=== PATIENT | female | born 1965 | race Two or more races ===

== ENCOUNTER 2024-12-23 09:48 | Inpatient (IN) | payer MEDICAID, OTHER ==
[~2024-12-23] VITALS: Ht 152.4 cm; Wt 72.6 kg
[2024-12-23 10:40] VITALS: PULSE 73; RESP 18; O2SAT 96
[2024-12-23] MEDS: PANTOPRAZOLE 40 MG/10 ML VIAL INJ IV ONE (10:58)
[2024-12-23] MEDS: ONDANSETRON HCL 4 MG/2 ML VIAL IV ONE (10:58)
--- NOTE | 2024-12-23 10:58 | ED.PDOC ---
GI ASSESSMENT HPI Comments 59-year-old female with a history of liver cirrhosis status post TIPS and ventral hernia brought in by private car complaining of left-sided abdominal pain radiating diffusely to the abdomen and to the left side of her back for more than a week, associated with nausea, dizziness, hemoptysis, malodorous urine and urinary frequency. She denies fever, pain, shortness of breath, diarrhea, constipation or dysuria. Patient also notes worsening lower extremity edema over the past several months. Chief Complaint: Abdominal Pain Time Seen by MD: 10:13 Reviewed Notes: Medications, Allergies Allergies: Coded Allergies: NO KNOWN ALLERGIES (Unverified , 12/23/24) Information Source: Patient Mode of Arrival: Ambulatory Timing: Days Duration: Since onset Prehospital treatment: None Quality: Sharp Vomitus: None Stool: Normal Severity: Moderate Recent: None Recent Hx of: None Pain Location: LUQ Associated sign and symptoms: Abdominal Pain Past Medical History PAST MEDICAL HISTORY: Liver Past Medical History (Other): For cirrhosis Surgical History (Other): Knee surgery, TIPS procedure [employer]IST History: Denies all [employer]GAL [employer]IST Hx Family History Family History: Reviewed,noncontributory to illness Social History Smoker: Non-Smoker Alcohol: Denies ETOH Use Drugs: Denies Drug Use Lives In: Home Constitutional: denies: chills, diaphoresis, fatigue, fever, malaise, sweats, weakness, others EENTM: denies: blurred vision, double vision, ear bleeding, ear discharge, ear drainage, ear pain, ear ringing, eye pain, eye redness, hearing loss, mouth pain, mouth swelling, nasal discharge, nose bleeding, nose congestion, nose pain, photophobia, tearing, throat pain, throat swelling, voice changes, others Respiratory: denies: cough, hemoptysis, orthopnea, SOB at rest, shortness of breath, SOB with excertion, stridor, wheezing, others Cardiovascular: denies: chest pain, dizzy spells, diaphoresis, Dyspnea on exertion, edema, irregular heart beat, left arm pain, lightheadedness, palpitations, PND, syncope, others Gastrointestinal: reports: abdominal pain; denies: abdomen distended, blood streaked bowels, constipated, diarrhea, dysphagia, difficulty swallowing, hematemesis, melena, nausea, poor appetite, poor fluid intake, rectal bleeding, rectal pain, vomiting, others Genitourinary: denies: abnormal vagina bleeding, burning, dyspareunia, dysuria, flank pain, frequency, hematuria, incontinence, pain, , vagina discharge, urgency, others Neurological: denies: dizziness, fainting, headache, left sided numbness, left sided weakness, numbness, paresthesia, pre-existing deficit, right sided numbness, right sided weakness, seizure, speech problems, tingling, tremors, weakness, others Musculoskeletal: denies: back pain, gout, joint pain, joint swelling, muscle pain, muscle stiffness, neck pain, others Integumetry: denies: bruises, change in color, change in hair/nails, dryness, laceration, lesions, lumps, rash, wounds, others Allergic/Immunocompromised: denies: Difficulty Healing, Frequent Infections, Hives, Itching, others Hematologic/Lymphatic: denies: anemia, blood clots, easy bleeding, easy bruising, swollen glands, others Endocrine: denies: excessive hunger, excessive sweating, excessive thirst, excessive urination, flushing, intolerance to cold, intolerance to heat, unexplained weight gain, unexplained weight loss, others Psychiatric: denies: anxiety, bipolar disorder, depression, hopeless, panic disorder, schizophrenia, sleepless, suicidal, others All Other Systems: Reviewed and Negative Physical Exam General Appearance: No Apparent Distress HEENT: Other (Pupils and face symmetric. Moist mucous membranes.) Neck: Full Range of Motion, Normal Inspection Respiratory: Lungs Clear, No Accessory Muscle Use, No Respiratory Distress, Normal Breath Sounds Cardiovascular: No Edema, No JVD, Regular Rate/Rhythm Breast Exam: Deferred Gastrointestinal: LLQ, LUQ, RUQ, Soft, Tenderness, Other (Left flank) Genitalia: Deferred Pelvic: Deferred Rectal: Deferred Extremities: Leg edema, Normal inspection, Normal range of motion, Non-tender, Pedal edema Neurologic: Alert (Oriented x4), Normal Affect, Normal Mood, Other (Ambulatory) Cerebellar Function: NOT DONE Reflexes: NOT DONE Skin: Dry, Jaundice, Warm Lymphatic: NOT DONE Was a procedure done? Was a procedure done?: No GI differential Dx Differential Diagnosis: Cholangitis, Diverticular disease, Gastritis/PUD, Gastroenteritis, Inflammatory BD, Ischemic Bowel, Pancreatitis, UTI, Urolithiasis, Dehydration, Electrolyte Imbalance, Food Poisoning, Bacterial, Viral, Hypovolemia, Renal Failure, Stress Ulcer, Kidney Stone X-Ray, Labs, Meds, VS Vital Signs Date Time Temp Pulse Resp B/P (MAP) Pulse Ox O2 Delivery O2 Flow Rate FiO2 12/23/24 11:00 62 18 141/70 12/23/24 10:40 97.8 73 18 141/70 (93) 96 97.8 12/23/24 10:40 73 18 96 Room Air* 0 21 12/23/24 09:49 97.9 81 18 138/63 95 97.9 Lab Test 12/23/24 13:11 12/23/24 11:13 Range/Units Troponin I High Sensitivity 6 13 </=34 ng/L White Blood Count 4.2 L 4.4-10.8 10^3/uL Red Blood Count 4.16 4.0-5.20 10^6/uL Hemoglobin 14.3 12.2-16.2 g/dL Hematocrit 40.9 36.0-46.0 % Mean Corpuscular Volume 98.4 80.0-100.0 fL Mean Corpuscular Hemoglobin 34.4 H 28.0-32.0 pg Mean Corpuscular Hemoglobin Concent 34.9 32.0-36.0 g/dL Red Cell Distribution Width 15.7 H 11.8-14.3 % Platelet Count 100 L 140-450 10^3/uL Mean Platelet Volume 8.6 6.9-10.8 fL Neutrophils (%) (Auto) 47.8 37.0-80.0 % Lymphocytes (%) (Auto) 39.3 10.0-50.0 % Monocytes (%) (Auto) 7.8 0.0-12.0 % Eosinophils (%) (Auto) 4.6 0.0-7.0 % Basophils (%) (Auto) 0.5 0.0-2.0 % Neutrophils # (Auto) 2.0 1.6-8.6 10 ^3/uL Lymphocytes # (Auto) 1.6 0.4-5.4 10 ^3/uL Monocytes # (Auto) 0.3 0-1.3 10 ^3/uL Eosinophils # (Auto) 0.2 0-0.8 10 ^3/uL Basophils # (Auto) 0 0-0.2 10 ^3/uL Nucleated Red Blood Cells 0.3 % Sodium Level 146 H 136-145 mmol/L Potassium Level 3.6 3.5-5.1 mmol/L Chloride Level 111 H 98-107 mmol/L Carbon Dioxide Level 27 20-31 mmol/L Anion Gap 8 5-15 Blood Urea Nitrogen 9 9-23 mg/dL Creatinine 0.78 0.550-1.02 mg/dL Glomerular Filtration Rate Calc 86 >90 mL/min BUN/Creatinine Ratio 11.5 10.0-20.0 Serum Glucose 109 H 74-106 mg/dL Lactic Acid Level 1.9 0.4-2.0 mmol/L Calcium Level 8.6 L 8.7-10.4 mg/dL Total Bilirubin 3.7 H 0.2-1.0 mg/dL Aspartate Amino Transferase (AST) 57 H 13-40 U/L Alanine Aminotransferase (ALT) 45 H 7-40 U/L Alkaline Phosphatase 160 H 46-116 U/L Ammonia 43 H 11-32 umol/L Total Protein 6.5 5.7-8.2 g/dL Albumin 2.9 L 3.2-4.8 g/dL Lipase 147 H 12-53 U/L Current Medications Medications (Trade) Dose Ordered Sig/Kirsty Route Start Time Stop Time Status Last Admin Sodium Chloride 1,000 ml @ 1,000 mls/hr Q1H ONCE IV 12/23/24 10:30 12/23/24 11:29 DC 12/23/24 11:01 Morphine Sulfate 4 mg ONCE ONCE IV 12/23/24 10:30 12/23/24 10:31 DC 12/23/24 11:00 Ondansetron HCl (Zofran) 4 mg ONCE ONCE IV 12/23/24 10:30 12/23/24 10:31 DC 12/23/24 10:58 Pantoprazole Sodium (Protonix) 40 mg ONCE ONCE IV 12/23/24 10:30 12/23/24 10:31 DC 12/23/24 10:58 PROCEDURE(s): ABPL - CT AB PEL WO CON-NO ORAL OR IV REASON: diffuse abd pain, hematemesis ORDER NUMBER(s): [id number], ACCESSION NUMBER(s): [id number] Indication: diffuse abd pain, hematemesis Technique: CT axial images of the abdomen and pelvis are obtained without contrast. Coronal and sagittal reformats were obtained. Radiation Dose Information: CTDI volume is 7 mGy. Dose-length product is 335 327.32 mGy*cm Comparison: None FINDINGS: There is limited interpretation of the abdomen and pelvis without administration of intravenous contrast. Lung bases demonstrate bibasilar atelectasis. Adrenal glands unremarkable in shape splenic hypodense lesions measuring up to 1.8 cm. Spleen enlarged. Pancreas unremarkable in shape. There is a tips. Cirrhotic morphology liver. 1.1 cm right hepatic lobe cyst. Kidneys demonstrate no hydronephrosis / nephrolithiasis. Stomach is partially distended. Small bowel loops are moderately distended. Moderate volume stool in the colon. Normal appendix. Abdominal aortic atherosclerotic disease. Bladder partially distended. Trace free pelvic fluid. No inguinal lymphadenopathy. [id number] bilateral sacroiliac degenerative joint disease. [id number] thoracolumbar degenerative disc disease. Paraumbilical hernia containing fluid measuring 1.2 x 1.1 cm. IMPRESSION: Cirrhotic morphology liver. Presence of tips. Splenomegaly. Multiple splenic hypodense lesions up to 1.8 cm. Recommend multiphasic MRI abdomen to characterize. Paraumbilical hernia containing fluid measuring 1.2 x 1.1 cm. Trace free pelvic fluid. Other findings as described. EDURE(s): ABDC - ABDOMEN COMPLETE SONOGRAM REASON: Right upper quadrant pain, nausea, vomiting, diarrha ORDER NUMBER(s): [id number], ACCESSION NUMBER(s): [id number] US ABDOMEN COMPLETE SONOGRAM HISTORY: Right upper quadrant pain, nausea, vomiting, diarrha COMPARISON: None TECHNIQUE: Transverse and longitudinal grayscale and color sonographic images were obtained of the abdomen. FINDINGS: Liver: - Size: 12.0 cm - Echogenicity: Heterogenous - Surface Contour: Nodular - Liver Lesion(s): TIPS with flow visualized. - Portal Vein: Patent and forward flowing. - Bile Ducts: Normal. The common bile duct is not visualized. Gallbladder: Normal. The sonographic jasmine sign is negative. Pancreas: Portions not obscured by bowel gas are normal. Spleen: - Size: 15.1 Cm 2.0 x 1.8 x 1.6 Cm thin walled cystic lesion. Kidneys: - Right kidney size: 11.8 cm. There is no hydronephrosis, renal calculi, or mass lesion. - Left kidney size: 11.9 cm. There is no hydronephrosis, renal calculi, or mass lesion. Aorta and Inferior Vena Cava: The visualized portions of the abdominal aorta and intrahepatic vena cava are normal. Other: None IMPRESSION: Cirrhotic liver with splenomegaly. TIPS visualized with flow within in seen. X-Ray, Labs, Meds, VS Comment 59-year-old female with a history of liver cirrhosis status post TIPS and ventr al hernia brought in by private car complaining of left-sided abdominal pain radiating diffusely to the abdomen and to the left side of her back for more than a week, associated with nausea, dizziness, hemoptysis, malodorous urine and urinary frequency. Vitals unremarkable Exam remarkable for right upper quadrant, left-sided abdominal and left flank tenderness to palpation Rhythm strip independently interpreted by me: Sinus rhythm, rate 81, no ectopy. Chest x-ray CT abdomen and pelvis IMPRESSION: Cirrhotic morphology liver. Presence of tips. Splenomegaly. Multiple splenic hypodense lesions up to 1.8 cm. Recommend multiphasic MRI abdomen to characterize. Paraumbilical hernia containing fluid measuring 1.2 x 1.1 cm. Trace free pelvic fluid. Other findings as described. Right upper quadrant ultrasound IMPRESSION: Cirrhotic liver with splenomegaly. TIPS visualized with flow within in seen. CBC remarkable for WBC 4.2, CMP remarkable for sodium 146, total bili 3.7, AST 57, ALT 45, alkaline phos 160, ammonia level 43, lipase 147, UA pending Patient treated with the following in the ED: 1 L 0.9 normal saline IV bolus, morphine 4 mg IV, Zofran 4 mg IV On re-evaluation, pain has improved, vitals were stable. Plan is to admit the patient for pain and emesis control and GI evaluation Time of 1ST Reevaluation: 11:12 Reevaluation 1ST: Unchanged Patient Education/Counseling: Diagnosis, Treatment Family Education/Counseling: No Family Present SEPSIS Sepsis Screen Date sepsis recognized/suspect: Dec 23, 2024 Time Sepsis recognized/suspect: 0950 Recent Procedure: No On Antibiotic Therapy: No Respiratory Rate >20: No Heart Rate >90: No Temp<36 C (96.8 F) or >38.3 C: No SBP <90 or MAP <65 mmHG: No New Acute Mental Status Change: No Is the patient on CPAP, BIPAP,: No Physician Orders Troponin-I Hs (12/23/24 15:00) Urinalysis (12/23/24 10:16) Ct Ab Pel Wo Con-No Oral Or Iv (12/23/24 10:16) Electrocardigram (12/23/24 10:17) Abdomen Complete Sonogram (12/23/24 12:01) Vital Signs Date Time Temp Pulse Resp B/P (MAP) Pulse Ox O2 Delivery O2 Flow Rate FiO2 12/23/24 11:00 62 18 141/70 12/23/24 10:40 97.8 73 18 141/70 (93) 96 97.8 12/23/24 10:40 73 18 96 Room Air* 0 21 12/23/24 09:49 97.9 81 18 138/63 95 97.9 Laboratory Tests Test 12/23/24 11:13 Lactic Acid Level 1.9 mmol/L (0.4-2.0) White Blood Count 4.2 10^3/uL (4.4-10.8) L Medications Medications Dose Ordered Sig/Kirsty Route Start Time Stop Time Status Last Admin Dose Admin Morphine Sulfate 4 mg ONCE ONCE IV 12/23/24 10:30 12/23/24 10:31 DC 12/23/24 11:00 Ondansetron HCl 4 mg ONCE ONCE IV 12/23/24 10:30 12/23/24 10:31 DC 12/23/24 10:58 Pantoprazole Sodium 40 mg ONCE ONCE IV 12/23/24 10:30 12/23/24 10:31 DC 12/23/24 10:58 Sodium Chloride 1,000 ml @ 1,000 mls/hr Q1H ONCE IV 12/23/24 10:30 12/23/24 11:29 DC 12/23/24 11:01 Departure 1 Departure Time of Disposition: 13:53 Impression: Primary Impression: Liver failure Additional Impressions: Hyperammonemia Abdominal pain Disposition: 09 ADMITTED INPATIENT Admit to: Med Surg Condition: Guarded Critical Care Note Critical Care Time?: No Stability Stability form required: No Heart Score Heart Score: Heart Score Response (Comments) Value History N/A 0 EKG N/A 0 Age N/A 0 Risk Factors N/A 0 Troponin N/A 0 Total 0 I personally scribed for GUALBERTO DOE MD ([email or web address]) on 12/23/24 at 11:15. Electronically submitted by Luis Angel Colon ([email or web address]). GUALBERTO DOE MD Dec 23, 2024 10:58
[2024-12-23] MEDS: MORPHINE SULFATE 4 MG/ML SYR/VIAL IV ONE (11:00)
[2024-12-23] MEDS: SODIUM CHLORIDE 0.9% 1,000 ML IV ONE (11:01)
--- NOTE | 2024-12-23 11:01 | DVH ---
Indication: diffuse abd pain, hematemesis Technique: CT axial images of the abdomen and pelvis are obtained without contrast. Coronal and sagit lorelei reformats were obtained. Radiation Dose Information: CTDI volume is 7 mGy. Dose-length product is 335 327.32 mGy*cm Comparison: None FINDINGS: There is limited interpretation of the abdomen and pelvis without administration of intravenous contr ast. Lung bases demonstrate bibasilar atelectasis. Adrenal glands unremarkable in shape splenic hypodense lesions measuring up to 1.8 cm. Spleen enlarge d. Pancreas unremarkable in shape. There is a tips. Cirrhotic morphology liver. 1.1 cm right hepatic lobe cyst. Kidneys demonstrate no hydronephrosis / nephrolithiasis. Stomach is partially distended. Small bowel loops are moderately distended. Moderate volume stool in the colon. Normal appendix. Abdominal aortic atherosclerotic disease. Bladder partially distended. Trace free pelvic fluid. No i nguinal lymphadenopathy. Bobq-lo-[id number] bilateral sacroiliac degenerative joint disease. [id number]-[id number]-[id number] thoracolumbar dege nerative disc disease. Paraumbilical hernia containing fluid measuring 1.2 x 1.1 cm. IMPRESSION: Cirrhotic morphology liver. Presence of tips. Splenomegaly. Multiple splenic hypodense lesions up to 1.8 cm. Recommend multiphasic MRI abdomen to characterize. Paraumbilical hernia containing fluid measuring 1.2 x 1.1 cm. Trace free pelvic fluid. Other findings as described.
[2024-12-23 11:39] LABS: Hematocrit 40.9 % (36.0-46.0); Hemoglobin 14.3 g/dL (12.2-16.2); Mean Corpuscular Hemoglobin 34.4 pg (28.0-32.0); Mean Corpuscular Volume 98.4 fL (80.0-100.0); Nucleated Red Blood Cells % 0.3 %
[2024-12-23 11:52] LABS: Anion Gap 8 (5-15); BUN/Creatinine Ratio 11.5 (10.0-20.0); Blood Urea Nitrogen 9 mg/dL (9-23); Carbon Dioxide 27 mmol/L (20-31); Potassium 3.6 mmol/L (3.5-5.1); Total Protein 6.5 g/dL (5.7-8.2)
[2024-12-23 11:53] LABS: Alanine Aminotransferase 45 U/L (7-40); Albumin 2.9 g/dL (3.2-4.8); Alkaline Phosphatase 160 U/L (46-116); Bilirubin, Total 3.7 mg/dL (0.2-1.0); Calcium 8.6 mg/dL (8.7-10.4); Chloride 111 mmol/L (98-107); Glucose 109 mg/dL (74-106); Lipase 147 U/L (12-53); Sodium 146 mmol/L (136-145)
--- NOTE | 2024-12-23 13:38 | DVH ---
US ABDOMEN COMPLETE SONOGRAM HISTORY: Right upper quadrant pain, nausea, vomiting, diarrha COMPARISON: None TECHNIQUE: Transverse and longitudinal grayscale and color sonographic images were obtained of the ab domen. FINDINGS: Liver: - Size: 12.0 cm - Echogenicity: Heterogenous - Surface Contour: Nodular - Liver Lesion(s): TIPS with flow visualized. - Portal Vein: Patent and forward flowing. - Bile Ducts: Normal. The common bile duct is not visualized. Gallbladder: Normal. The sonographic jasmine sign is negative. Pancreas: Portions not obscured by bowel gas are normal. Spleen: - Size: 15.1 Cm 2.0 x 1.8 x 1.6 Cm thin walled cystic lesion. Kidneys: - Right kidney size: 11.8 cm. There is no hydronephrosis, renal calculi, or mass lesion. - Left kidney size: 11.9 cm. There is no hydronephrosis, renal calculi, or mass lesion. Aorta and Inferior Vena Cava: The visualized portions of the abdominal aorta and intrahepatic vena ca va are normal. Other: None IMPRESSION: Cirrhotic liver with splenomegaly. TIPS visualized with flow within in seen.
[2024-12-23 14:18] LABS: Urine Protein, UAD Negative (Negative)
--- NOTE | 2024-12-23 14:18 | DVH ---
CHEST RADIOGRAPH Indication: Hemoptysis Technique: Single frontal view of the chest was obtained COMPARISON: None FINDINGS: Lines and Tubes: None Lungs: Clear Pleura: No effusion. No pneumothorax. Cardiomediastinal contours: Unremarkable Bones: Unremarkable IMPRESSION: No acute disease.
[2024-12-23] MEDS ORDERED: ONDANSETRON HCL 4 MG/2 ML VIAL IV PRN (15:45)
--- NOTE | 2024-12-23 16:12 | DVHHP2 ---
History of Present Illness Reason for Visit: Abdominal pain radiating to the back History of Present Illness Ching Lopez is a 59-year-old female with past medical history of liver cirrhosis, bilateral knee surgery, tips procedure 6 years ago, and history of alcohol abuse who reports that she quit who presents to the ED with left-sided abdominal pain that radiates to the back ongoing for 1 week. Patient reports that the pain is 9/10 sharp and constant. Patient reports that there are no triggering or alleviating factors. Patient also reports that she has been coughing up dark black phlegm that started 3 weeks ago has been going on and off. Patient also endorsed that she has been hospitalized in the past for liver cirrhosis and has been on lactulose on and off for her elevated ammonia levels. Upon examination patient was nauseous and vomiting clear emesis. Patient denies any chest pain, shortness of breath, fever, chills, lightheadedness, weakness, diarrhea, recent trauma or injury, recent sick contacts, recent ingestion of spoiled food, recent travels, fever, or chills. Patient reports that she quit drinking some time ago but would not indicate how long ago. Hepatobiliary: Cirrhosis Past Surgical History: Other (Bilateral knee surgery and tips procedure) Family History: None Smoke: No ALCOHOL: none (Quit) Drugs: None Lives: Alone Domestic Violence: Neg Review of Systems Respiratory: Other (Melanoptysis) Gastrointestinal: Nausea, Vomiting, Abdominal Pain Allergies: Coded Allergies: NO KNOWN ALLERGIES (Unverified , 12/23/24) Exam Vital Signs Vital Signs Date Time Temp Pulse Resp B/P (MAP) Pulse Ox O2 Delivery O2 Flow Rate FiO2 12/23/24 15:21 97.3 58 16 135/69 (91) 97 97.3 12/23/24 10:40 Room Air* 0 21 General Appearance: Alert, Oriented X3, Cooperative, No acute distress HEENT: Atraumatic, PERRLA, EOMI, Mucous membr. moist/pink Respiratory: Normal air movement Cardiovascular: Normal S1, Normal S2, No murmurs Abdominal: Normal bowel sounds, Soft Extremities: No clubbing, No cyanosis, No edema, Normal pulses, No tenderness/swelling Skin: No rashes, No breakdown, No significant lesion Neuro: Normal gait, Normal speech, Strength at 5/5 X4 ext, Normal tone Psych/Mental Status: Mental status NL, Mood NL Labs/Xrays Labs Test 12/23/24 15:18 12/23/24 13:44 12/23/24 11:13 Range/Units Urine Color Yellow Yellow Urine Clarity Cloudy H Clear Urine pH 6.0 5.0-9.0 Urine Specific [place] 1.014 1.001-1.035 Urine Protein Negative Negative Urine Ketones Negative Negative Urine Blood Negative Negative /uL Urine Nitrite 2+ H Negative Urine Bilirubin Negative Negative Urine Urobilinogen 6 Negative mg/dL Urine Leukocyte Esterase 3+ Negative /uL Urine RBC 2 0 - 4 /hpf Urine Microscopic WBC 86 H 0-5 /HPF Urine Squamous Epithelial Cells Few <5 /hpf Urine Bacteria Mod H None Seen /hpf Urine Glucose Normal Normal mg/dL White Blood Count 4.2 L 4.4-10.8 10^3/uL Red Blood Count 4.16 4.0-5.20 10^6/uL Hemoglobin 14.3 12.2-16.2 g/dL Hematocrit 40.9 36.0-46.0 % Mean Corpuscular Volume 98.4 80.0-100.0 fL Mean Corpuscular Hemoglobin 34.4 H 28.0-32.0 pg Mean Corpuscular Hemoglobin Concent 34.9 32.0-36.0 g/dL Red Cell Distribution Width 15.7 H 11.8-14.3 % Platelet Count 100 L 140-450 10^3/uL Mean Platelet Volume 8.6 6.9-10.8 fL Neutrophils (%) (Auto) 47.8 37.0-80.0 % Lymphocytes (%) (Auto) 39.3 10.0-50.0 % Monocytes (%) (Auto) 7.8 0.0-12.0 % Eosinophils (%) (Auto) 4.6 0.0-7.0 % Basophils (%) (Auto) 0.5 0.0-2.0 % Neutrophils # (Auto) 2.0 1.6-8.6 10 ^3/uL Lymphocytes # (Auto) 1.6 0.4-5.4 10 ^3/uL Monocytes # (Auto) 0.3 0-1.3 10 ^3/uL Eosinophils # (Auto) 0.2 0-0.8 10 ^3/uL Basophils # (Auto) 0 0-0.2 10 ^3/uL Nucleated Red Blood Cells 0.3 % Sodium Level 146 H 136-145 mmol/L Potassium Level 3.6 3.5-5.1 mmol/L Chloride Level 111 H 98-107 mmol/L Carbon Dioxide Level 27 20-31 mmol/L Anion Gap 8 5-15 Blood Urea Nitrogen 9 9-23 mg/dL Creatinine 0.78 0.550-1.02 mg/dL Glomerular Filtration Rate Calc 86 >90 mL/min BUN/Creatinine Ratio 11.5 10.0-20.0 Serum Glucose 109 H 74-106 mg/dL Lactic Acid Level 1.9 0.4-2.0 mmol/L Calcium Level 8.6 L 8.7-10.4 mg/dL Total Bilirubin 3.7 H 0.2-1.0 mg/dL Aspartate Amino Transferase (AST) 57 H 13-40 U/L Alanine Aminotransferase (ALT) 45 H 7-40 U/L Alkaline Phosphatase 160 H 46-116 U/L Ammonia 43 H 11-32 umol/L Total Protein 6.5 5.7-8.2 g/dL Albumin 2.9 L 3.2-4.8 g/dL Lipase 147 H 12-53 U/L CHEST RADIOGRAPH Indication: Hemoptysis Technique: Single frontal view of the chest was obtained COMPARISON: None FINDINGS: Lines and Tubes: None Lungs: Clear Pleura: No effusion. No pneumothorax. Cardiomediastinal contours: Unremarkable Bones: Unremarkable IMPRESSION: No acute disease. US ABDOMEN COMPLETE SONOGRAM HISTORY: Right upper quadrant pain, nausea, vomiting, diarrha COMPARISON: None TECHNIQUE: Transverse and longitudinal grayscale and color sonographic images were obtained of the abdomen. FINDINGS: Liver: - Size: 12.0 cm - Echogenicity: Heterogenous - Surface Contour: Nodular - Liver Lesion(s): TIPS with flow visualized. - Portal Vein: Patent and forward flowing. - Bile Ducts: Normal. The common bile duct is not visualized. Gallbladder: Normal. The sonographic jasmine sign is negative. Pancreas: Portions not obscured by bowel gas are normal. Spleen: - Size: 15.1 Cm 2.0 x 1.8 x 1.6 Cm thin walled cystic lesion. Kidneys: - Right kidney size: 11.8 cm. There is no hydronephrosis, renal calculi, or mass lesion. - Left kidney size: 11.9 cm. There is no hydronephrosis, renal calculi, or mass lesion. Aorta and Inferior Vena Cava: The visualized portions of the abdominal aorta and intrahepatic vena cava are normal. Other: None IMPRESSION: Cirrhotic liver with splenomegaly. TIPS visualized with flow within in seen. ORDERING PHYSICIAN: GUALBERTO DOE MD PROCEDURE(s): ABPL - CT AB PEL WO CON-NO ORAL OR IV REASON: diffuse abd pain, hematemesis ORDER NUMBER(s): [id number], ACCESSION NUMBER(s): [id number] Indication: diffuse abd pain, hematemesis Technique: CT axial images of the abdomen and pelvis are obtained without contrast. Coronal and sagittal reformats were obtained. Radiation Dose Information: CTDI volume is 7 mGy. Dose-length product is 335 327.32 mGy*cm Comparison: None FINDINGS: There is limited interpretation of the abdomen and pelvis without administration of intravenous contrast. Lung bases demonstrate bibasilar atelectasis. Adrenal glands unremarkable in shape splenic hypodense lesions measuring up to 1.8 cm. Spleen enlarged. Pancreas unremarkable in shape. There is a tips. Cirrhotic morphology liver. 1.1 cm right hepatic lobe cyst. Kidneys demonstrate no hydronephrosis / nephrolithiasis. Stomach is partially distended. Small bowel loops are moderately distended. Moderate volume stool in the colon. Normal appendix. Abdominal aortic atherosclerotic disease. Bladder partially distended. Trace free pelvic fluid. No inguinal lymphadenopathy. Gvty-at-hnhyyhmz bilateral sacroiliac degenerative joint disease. Aatt-gs-dkjejlfb thoracolumbar degenerative disc disease. Paraumbilical hernia containing fluid measuring 1.2 x 1.1 cm. IMPRESSION: Cirrhotic morphology liver. Presence of tips. Splenomegaly. Multiple splenic hypodense lesions up to 1.8 cm. Recommend multiphasic MRI abdomen to characterize. Paraumbilical hernia containing fluid measuring 1.2 x 1.1 cm. Trace free pelvic fluid. Other findings as described. SEPSIS Sepsis Screen Date sepsis recognized/suspect: Dec 23, 2024 Time Sepsis recognized/suspect: 949 Recent Procedure: No On Antibiotic Therapy: No Respiratory Rate >20: No Heart Rate >90: No Temp<36 C (96.8 F) or >38.3 C: No SBP <90 or MAP <65 mmHG: No New Acute Mental Status Change: No Is the patient on CPAP, BIPAP,: No Physician Orders Troponin-I Hs (12/23/24 15:00) Ct Ab Pel Wo Con-No Oral Or Iv (12/23/24 10:16) Electrocardigram (12/23/24 10:17) Abdomen Complete Sonogram (12/23/24 12:01) Chest Xray 1 View (12/23/24 13:53) Lactulose Oral (12/23/24 15:45) Admit (12/23/24 15:41) Allergies (12/23/24 15:41) Code Status (12/23/24 15:41) Ondansetron Hcl (Zofran) (12/23/24 15:45) Complete Blood Count (12/24/24 04:00) Comprehensive Metabolic Panel (12/24/24 04:00) Cardiac Diet-2gna,Lofat,Lochol (12/23/24 Dinner) Sequential Compression Device (12/23/24 ) Pantoprazole (Protonix) (12/24/24 10:00) Vital Signs Date Time Temp Pulse Resp B/P (MAP) Pulse Ox O2 Delivery O2 Flow Rate FiO2 12/23/24 15:21 97.3 58 16 135/69 (91) 97 97.3 12/23/24 11:00 62 18 141/70 12/23/24 10:40 97.8 73 18 141/70 (93) 96 97.8 12/23/24 10:40 73 18 96 Room Air* 0 21 12/23/24 09:49 97.9 81 18 138/63 95 97.9 Laboratory Tests Test 12/23/24 11:13 Lactic Acid Level 1.9 mmol/L (0.4-2.0) White Blood Count 4.2 10^3/uL (4.4-10.8) L Medications Medications Dose Ordered Sig/Kirsty Route Start Time Stop Time Status Last Admin Dose Admin Morphine Sulfate 4 mg ONCE ONCE IV 12/23/24 10:30 12/23/24 10:31 DC 12/23/24 11:00 4 MG Ondansetron HCl 4 mg ONCE ONCE IV 12/23/24 10:30 12/23/24 10:31 DC 12/23/24 10:58 4 MG Pantoprazole Sodium 40 mg ONCE ONCE IV 12/23/24 10:30 12/23/24 10:31 DC 12/23/24 10:58 40 MG Sodium Chloride 1,000 ml @ 1,000 mls/hr Q1H ONCE IV 12/23/24 10:30 12/23/24 11:29 DC 12/23/24 11:01 1,000 MLS/HR Assessment/Plan Assessment/Plan Assessment Intractable abdominal pain with nausea and vomiting Splenomegaly Multiple splenic hypodense lesions up to 1.8 cm Paraumbilical hernia Thrombocytopenia Hyponatremia Hyperchloremia Hyperbilirubinemia Transaminitis Hyperlipasemia History of Liver cirrhosis History of Bilateral knee surgery History of tips procedure 6 years ago at [facility] History of alcohol abuse Plan Admit to med surge Antiemetics Pain management Ultrasound abdomen noted Ammonia level noted EKG Troponin noted Lactic noted CT abdomen and pelvis noted UA Lipase noted Alcohol level ordered UDS ordered Lactulose Aspergillus test CT chest ordered Diet Patient reports she does not take any home medications DVT prophylaxis-not indicated patient ambulating PUD prophylaxis-PPIs Discussed plan of care with patient and nurse Consider pulmonary and GI consult Consider multiphasic MRI abdomen for multiple splenic hypodense lesions up to 1.8cm [id number] Advanced care planning discussed [id number] Preventive counseling healthy eating habits, physical activity, and re gular checkups Plan discussed with: Patient My Orders Orders - RASHAWN FIGUEROA Procedure Category Date Status Time Lactulose Oral PHA 12/23/24 Logged 15:45 Admit ADMIT 12/23/24 Transmitted 15:41 Allergies RORO 12/23/24 In Process 15:41 Code Status CODE 12/23/24 Transmitted 15:41 Ondansetron Hcl PHA 12/23/24 Logged (Zofran) 15:45 Complete Blood Count LAB 12/24/24 Verified 04:00 Comprehensive LAB 12/24/24 Verified Metabolic Panel 04:00 Cardiac DIET 12/23/24 Transmitted Diet-2gna,Lofat,Lochol Dinner Sequential RORO 12/23/24 In Process Compression Device Pantoprazole PHA 12/24/24 Transmitted (Protonix) 10:00 Date of Service: Dec 23, 2024 Billing Provider: RASHAWN FIGUEROA Common Visit Codes: [id number] INP/OBS CARE (HIGH) Secondary Visit Codes: [id number] COUNSELING IND, [id number] CARE PLAN 30 MINUTES RASHAWN FIGUEROA Dec 23, 2024 16:11
--- NOTE | 2024-12-23 16:53 | DVH ---
Indication: coughing up dark black phlegm Technique: CT axial images of the chest are obtained without contrast. Coronal and sagittal reformats were obtained. Radiation Dose Information: CTDI volume is 9.81 mGy. Dose-length product is 2.54 mGy*cm Comparison: None FINDINGS: The trachea is patent. No pneumothorax. There is no pulmonary airspace consolidation. No pleural effu elías. The heart is normal in size. Cirrhotic morphology liver with tips stent again noted. Splenic hypodense lesions again noted. Mild thoracic degenerative disc disease. IMPRESSION: Limited evaluation without contrast. No pulmonary airspace consolidation. Cirrhotic morphology liver, presence of TIPS. Splenic hypodense lesions as described previously which can be further evaluate with MRI abdomen with and without contrast. Other findings as described
[2024-12-23 18:13] LABS: Amphetamine Screen, Urine Neg (NEGATIVE); Barbiturate Scree,Urine Neg (NEGATIVE); Opiate Scree,Urine Neg (NEGATIVE); Phencyclidine Screen, Urine Neg (NEGATIVE)
[2024-12-23 18:14] LABS: Benzodiazephine Screen, Urine Neg (NEGATIVE); Cannabinoid Screen, Urine Neg (NEGATIVE); Cocaine Screen, Urine Neg (NEGATIVE)
[2024-12-23] MEDS: LACTULOSE 20Gm/30ML SOLN PO SCH (18:37)
[2024-12-23 21:00] VITALS: BP 129/53; PULSE 67; RESP 18; TEMP 97.9; O2SAT 97
[2024-12-23 22:12] VITALS: BP 135/65; PULSE 75; RESP 18; TEMP 98.7; O2SAT 98
[2024-12-24] VITALS (8 sets, daily range): BP systolic 106–136; BP diastolic 37–67; PULSE 57–79; RESP 18–20; TEMP 97.8–98.6; O2SAT 90–100
[2024-12-24 05:55] LABS: Hematocrit 36.4 % (36.0-46.0); Hemoglobin 12.8 g/dL (12.2-16.2); Mean Corpuscular Hemoglobin 34.8 pg (28.0-32.0); Mean Corpuscular Volume 99.0 fL (80.0-100.0); Nucleated Red Blood Cells % 0.1 %
[2024-12-24 06:04] LABS: Alanine Aminotransferase 37 U/L (7-40); Alkaline Phosphatase 105 U/L (46-116); Anion Gap 9 (5-15); BUN/Creatinine Ratio 14.5 (10.0-20.0); Blood Urea Nitrogen 11 mg/dL (9-23); Carbon Dioxide 25 mmol/L (20-31); Glucose 94 mg/dL (74-106); Sodium 144 mmol/L (136-145); Total Protein 5.9 g/dL (5.7-8.2)
[2024-12-24 06:08] LABS: Albumin 2.7 g/dL (3.2-4.8); Bilirubin, Total 2.9 mg/dL (0.2-1.0); Calcium 8.2 mg/dL (8.7-10.4); Chloride 110 mmol/L (98-107); Potassium 3.3 mmol/L (3.5-5.1)
[2024-12-24] MEDS: HYDROcodone-ACET 10/325MG TAB PO PRN (07:12)
[2024-12-24] MEDS: PANTOPRAZOLE 40 MG/10 ML VIAL INJ IV SCH (09:30)
--- NOTE | 2024-12-24 12:19 | DVHPN2 ---
Subjective The patient seen and examined at bedside. Complains of abdominal pain. Reviewed: Care Plan, H&P, Labs, Medications, Previous Orders, Radiology Changes from previous H/P or p: No Changes Respiratory: Other Gastrointestinal: Nausea, Vomiting, Abdominal Pain Objective Vitals Vital Signs Date Time Temp Pulse Resp B/P (MAP) Pulse Ox O2 Delivery O2 Flow Rate FiO2 12/24/24 10:42 57 20 100 Room Air* 0 21 12/24/24 09:00 98.6 121/54 (76) 98.6 Intake/Output Intake and Output 12/24/24 07:00 Intake Total 300 ml Balance 300 ml Intake Oral 300 ml # Voids 2 General Appearance: Alert, Oriented X3, Cooperative, No acute distress HEENT: Atraumatic, PERRLA, EOMI, Mucous membr. moist/pink Neck: Supple Lungs: Clear to auscultation, Normal air movement Cardiovascular: Regular rate, Normal S1, Normal S2, No murmurs, Gallops, Rubs Abdomen: Normal bowel sounds, Soft, No tenderness Neuro: Cranial nerves 3-12 NL Psych/Mental Status: Mental status NL Medications Current Medications Medications Dose Ordered Sig/Kirsty Route Start Time Stop Time Status Last Admin Dose Admin Lactulose 30 ml DAILY PO 12/23/24 15:45 12/23/24 18:37 30 ML Ondansetron HCl 4 mg Q4HP PRN IV 12/23/24 15:45 Pantoprazole Sodium 40 mg DAILY IV 12/24/24 10:00 12/24/24 09:30 40 MG Acetaminophen/ Hydrocodone Bitart 1 tab Q4HP PRN PO 12/24/24 06:45 12/24/24 07:12 1 TAB Laboratory Results Laboratory Tests 12/24/24 04:51 Chemistry Test 12/24/24 04:51 Albumin 2.7 g/dL (3.2-4.8) L Calcium Level 8.2 mg/dL (8.7-10.4) L Total Protein 5.9 g/dL (5.7-8.2) LFT Test 12/24/24 04:51 Alanine Aminotransferase (ALT) 37 U/L (7-40) Alkaline Phosphatase 105 U/L (46-116) Aspartate Amino Transferase (AST) 45 U/L (13-40) H Total Bilirubin 2.9 mg/dL (0.2-1.0) H Urinalysis Test 12/23/24 13:44 Urine Color Yellow (Yellow) Urine Clarity Cloudy (Clear) H Urine pH 6.0 (5.0-9.0) Urine Specific [place] 1.014 (1.001-1.035) Urine Protein Negative (Negative) Urine Ketones Negative (Negative) Urine Blood Negative /uL (Negative) Urine Nitrite 2+ (Negative) H Urine Bilirubin Negative (Negative) Urine Urobilinogen 6 mg/dL (Negative) Urine Leukocyte Esterase 3+ /uL (Negative) Urine RBC 2 /hpf (0 - 4) Urine Microscopic WBC 86 /HPF (0-5) H Urine Squamous Epithelial Cells Few /hpf (<5) Urine Bacteria Mod /hpf (None Seen) H Urine Glucose Normal mg/dL (Normal) Labs and/or images reviewed: Labs reviewed by me Assessment/Plan Assessment/Plan Intractable abdominal pain with nausea and vomiting Splenomegaly Multiple splenic hypodense lesions up to 1.8 cm Paraumbilical hernia Thrombocytopenia Hyponatremia Hyperchloremia Hyperbilirubinemia Transaminitis Hyperlipasemia History of Liver cirrhosis History of Bilateral knee surgery History of tips procedure 6 years ago at [facility] History of alcohol abuse Continue current management. Follow up Ct chest. Continue to monitor liver function. This medical document was created using an electronic medical record system with [employer] direct computerized dictation system. Although this document has been carefully reviewed, there may still be some phonetic and typographical errors. These areas are purely typographical due to imperfections of the software programs, and do not reflect any compromise in the patient's medical care. Plan discussed with: Patient Date of Service: Dec 24, 2024 Billing Provider: TRISTAN LEE MD Common Visit Codes: [id number] INP/OBS CARE(HIGH) TRISTAN LEE MD Dec 24, 2024 12:19
[2024-12-25 01:00] VITALS: BP 109/53; PULSE 72; RESP 20; TEMP 97.5; O2SAT 93
[2024-12-25 05:00] VITALS: BP 110/58; PULSE 66; RESP 18; TEMP 97.9; O2SAT 94
[2024-12-25 09:30] VITALS: BP 102/51; PULSE 65; RESP 18; TEMP 98.1; O2SAT 96
[2024-12-25 13:29] VITALS: BP 109/66; PULSE 76; RESP 18; TEMP 98; O2SAT 98
--- NOTE | 2024-12-25 15:15 | DVHPN2 ---
Subjective The patient is seen and examined at bedside. Abdominal pain improved. Reviewed: Care Plan, H&P, Labs, Medications, Previous Orders, Radiology Changes from previous H/P or p: No Changes Respiratory: Other Gastrointestinal: Nausea, Vomiting, Abdominal Pain Objective Vitals Vital Signs Date Time Temp Pulse Resp B/P (MAP) Pulse Ox O2 Delivery O2 Flow Rate FiO2 12/25/24 13:29 98.0 76 18 109/66 (80) 98 98.0 12/25/24 08:00 Room Air* 0 21 Intake/Output Intake and Output 12/25/24 07:00 Intake Total 1200 ml Output Total 700 ml Balance 500 ml Intake Oral 1200 ml Output Urine Total 700 ml # Voids 2 General Appearance: Alert, Oriented X3, Cooperative, No acute distress HEENT: Atraumatic, PERRLA, EOMI, Mucous membr. moist/pink Neck: Supple Lungs: Clear to auscultation, Normal air movement Cardiovascular: Regular rate, Normal S1, Normal S2, No murmurs, Gallops, Rubs Abdomen: Normal bowel sounds, Soft, No tenderness Neuro: Cranial nerves 3-12 NL Psych/Mental Status: Mental status NL Medications Current Medications Medications Dose Ordered Sig/Kirsty Route Start Time Stop Time Status Last Admin Dose Admin Lactulose 30 ml DAILY PO 12/23/24 15:45 12/23/24 18:37 30 ML Ondansetron HCl 4 mg Q4HP PRN IV 12/23/24 15:45 Pantoprazole Sodium 40 mg DAILY IV 12/24/24 10:00 12/25/24 10:06 40 MG Acetaminophen/ Hydrocodone Bitart 1 tab Q4HP PRN PO 12/24/24 06:45 12/25/24 14:20 1 TAB Laboratory Results Laboratory Tests 12/24/24 04:51 Urinalysis Test 12/23/24 13:44 Urine Color Yellow (Yellow) Urine Clarity Cloudy (Clear) H Urine pH 6.0 (5.0-9.0) Urine Specific [place] 1.014 (1.001-1.035) Urine Protein Negative (Negative) Urine Ketones Negative (Negative) Urine Blood Negative /uL (Negative) Urine Nitrite 2+ (Negative) H Urine Bilirubin Negative (Negative) Urine Urobilinogen 6 mg/dL (Negative) Urine Leukocyte Esterase 3+ /uL (Negative) Urine RBC 2 /hpf (0 - 4) Urine Microscopic WBC 86 /HPF (0-5) H Urine Squamous Epithelial Cells Few /hpf (<5) Urine Bacteria Mod /hpf (None Seen) H Urine Glucose Normal mg/dL (Normal) Labs and/or images reviewed: Labs reviewed by me Assessment/Plan Assessment/Plan Intractable abdominal pain with nausea and vomiting Splenomegaly Multiple splenic hypodense lesions up to 1.8 cm Paraumbilical hernia Thrombocytopenia Hyponatremia Hyperchloremia Hyperbilirubinemia Transaminitis Hyperlipasemia History of Liver cirrhosis History of Bilateral knee surgery History of tips procedure 6 years ago at [facility] History of alcohol abuse Continue current management. CT scan showed multiple lesion in spleen. Need further imaging studying. I will order an MRI of the abdomen with and without contrast. Continue to monitor liver function. This medical document was created using an electronic medical record system with [employer] direct computerized dictation system. Although this document has been carefully reviewed, there may still be some phonetic and typographical errors. These areas are purely typographical due to imperfections of the software programs, and do not reflect any compromise in the patient's medical care. Plan discussed with: Patient My Orders Orders - TRISTAN LEE MD Procedure Category Date Status Time Mri Abd & Plevis W/Wo MRI 12/25/24 Logged Cont 14:11 Date of Service: Dec 25, 2024 Billing Provider: TRISTAN LEE MD Common Visit Codes: [id number] INP/OBS CARE(HIGH) TRISTAN LEE MD Dec 25, 2024 15:15
[2024-12-25] MEDS ORDERED: GADOTERATE MEG 10 MMOL/20ml INJ (0.5MMOL/ml) IV ONE (16:16)
[2024-12-25 16:30] VITALS: BP 100/55; PULSE 62; RESP 18; TEMP 97.8; O2SAT 95
[2024-12-25 21:00] VITALS: BP 113/53; PULSE 86; RESP 17; TEMP 98.2; O2SAT 95
[2024-12-26 01:00] VITALS: BP 108/53; PULSE 64; RESP 17; TEMP 98.5; O2SAT 96
[2024-12-26 05:00] VITALS: BP 113/61; PULSE 74; RESP 17; TEMP 98; O2SAT 94
--- NOTE | 2024-12-26 07:33 | DVH ---
MRI Abdomen, Pre and Post Contrast Exam Date: 12/25/2024 04:07 PM Comparison: US ABDOMEN COMPLETE SONOGRAM on DOS: 12/23/24, CT CT AB PEL WO CON-NO ORAL OR IV on DOS: History: Pancreatic lesion Technique: Multisequence multiplanar MRI images were obtained of the abdomen without and with intravenous contra st. Findings: Liver: Hepatic cirrhosis. Tips is patent and demonstrates flow. Inferior right hepatic lobe cyst me asures 1.0 cm. Spleen: Splenomegaly, 13.8 cm craniocaudal. Multiple T2 hyperintense lesions in the spleen likely rep resenting benign cysts or hemangiomas. Pancreas: The pancreas is normal in appearance without focal lesions. Gallbladder and ducts: Gallbladder is normal in appearance. Mild intrahepatic biliary duct dilation. The pancreatic duct is within normal limits. Adrenal glands: Unremarkable. Kidneys: Normal enhancement without suspicious lesions or hydronephrosis. Visualized bowel: Distended stomach. Vasculature: Upper abdominal varices are present including probable splenorenal shunt in gastric vari cathie. Lymphadenopathy: No evidence for lymphadenopathy. Ascites: Absent. Musculoskeletal: Bone marrow signal is normal. IMPRESSION: Extremely limited examination secondary to poor signal to noise ratio from MRI scanner and patient mo tion artifact. Hepatic cirrhosis. Grossly patent TIPS. Upper abdominal varices including probable splenorenal shunt and gastric varices.
[2024-12-26 09:32] VITALS: BP 105/53; PULSE 71; RESP 14; TEMP 98.4; O2SAT 98
[2024-12-26 10:06] LABS: Potassium 3.7 mmol/L (3.5-5.1); Sodium 141 mmol/L (136-145)
[2024-12-26 10:07] LABS: Anion Gap 7 (5-15); Carbon Dioxide 27 mmol/L (20-31)
[2024-12-26 10:12] LABS: BUN/Creatinine Ratio 10.1 (10.0-20.0)
[2024-12-26 10:14] LABS: Blood Urea Nitrogen 8 mg/dL (9-23); Calcium 8.0 mg/dL (8.7-10.4); Chloride 107 mmol/L (98-107); Glucose 148 mg/dL (74-106)
[2024-12-26] MEDS ORDERED: ZOFR4T PO (12:39)
[2024-12-26] MEDS ORDERED: LACT10SO3 PO (12:39)
[2024-12-26] MEDS ORDERED: HYDR-4798 PO (12:39)
[2024-12-26 13:25] VITALS: BP 104/53; PULSE 76; RESP 16; TEMP 98; O2SAT 99
--- NOTE | 2024-12-26 14:36 | DVHDSRES ---
Discharge Summary Date of Admission Resident Creating Document: MARLENA CORONADO RESIDENT Dec 23, 2024 at 15:41 Date of Discharge: Dec 26, 2024 Labs/Diagnostic Data: Laboratory Results Test 12/26/24 09:30 12/24/24 04:51 12/23/24 20:48 12/23/24 15:53 Sodium Level 141 mmol/L (136-145) Potassium Level 3.7 mmol/L (3.5-5.1) Chloride Level 107 mmol/L (98-107) Carbon Dioxide Level 27 mmol/L (20-31) Anion Gap 7 (5-15) Blood Urea Nitrogen 8 mg/dL (9-23) Creatinine 0.79 mg/dL (0.550-1.02) Glomerular Filtration Rate Calc 85 mL/min (>90) BUN/Creatinine Ratio 10.1 (10.0-20.0) Serum Glucose 148 mg/dL (74-106) Calcium Level 8.0 mg/dL (8.7-10.4) White Blood Count 5.1 10^3/uL (4.4-10.8) Red Blood Count 3.68 10^6/uL (4.0-5.20) Hemoglobin 12.8 g/dL (12.2-16.2) Hematocrit 36.4 % (36.0-46.0) Mean Corpuscular Volume 99.0 fL (80.0-100.0) Mean Corpuscular Hemoglobin 34.8 pg (28.0-32.0) Mean Corpuscular Hemoglobin Concent 35.1 g/dL (32.0-36.0) Red Cell Distribution Width 15.4 % (11.8-14.3) Platelet Count 95 10^3/uL (140-450) Mean Platelet Volume 9.1 fL (6.9-10.8) Neutrophils (%) (Auto) 65.8 % (37.0-80.0) Lymphocytes (%) (Auto) 24.7 % (10.0-50.0) Monocytes (%) (Auto) 7.4 % (0.0-12.0) Eosinophils (%) (Auto) 1.9 % (0.0-7.0) Basophils (%) (Auto) 0.2 % (0.0-2.0) Neutrophils # (Auto) 3.3 10 ^3/uL (1.6-8.6) Lymphocytes # (Auto) 1.3 10 ^3/uL (0.4-5.4) Monocytes # (Auto) 0.4 10 ^3/uL (0-1.3) Eosinophils # (Auto) 0.1 10 ^3/uL (0-0.8) Basophils # (Auto) 0 10 ^3/uL (0-0.2) Nucleated Red Blood Cells 0.1 % Total Bilirubin 2.9 mg/dL (0.2-1.0) Aspartate Amino Transferase (AST) 45 U/L (13-40) Alanine Aminotransferase (ALT) 37 U/L (7-40) Alkaline Phosphatase 105 U/L (46-116) Total Protein 5.9 g/dL (5.7-8.2) Albumin 2.7 g/dL (3.2-4.8) Urine Opiates Screen Neg (NEGATIVE) Urine Fentanyl Screen Neg (NEGATIVE) Urine Barbiturates Screen Neg (NEGATIVE) Urine Phencyclidine Screen Neg (NEGATIVE) Urine Amphetamines Screen Neg (NEGATIVE) Urine Benzodiazepines Screen Neg (NEGATIVE) Urine Cocaine Screen Neg (NEGATIVE) Urine Cannabinoids Screen Neg (NEGATIVE) Test 12/23/24 15:18 12/23/24 15:16 12/23/24 13:44 12/23/24 11:13 Troponin I High Sensitivity 8 ng/L (</=34) Plasma/Serum Blood Alcohol 5.0 mg/dL (<10) Urine Color Yellow (Yellow) Urine Clarity Cloudy (Clear) Urine pH 6.0 (5.0-9.0) Urine Specific [place] 1.014 (1.001-1.035) Urine Protein Negative (Negative) Urine Ketones Negative (Negative) Urine Blood Negative /uL (Negative) Urine Nitrite 2+ (Negative) Urine Bilirubin Negative (Negative) Urine Urobilinogen 6 mg/dL (Negative) Urine Leukocyte Esterase 3+ /uL (Negative) Urine RBC 2 /hpf (0 - 4) Urine Microscopic WBC 86 /HPF (0-5) Urine Squamous Epithelial Cells Few /hpf (<5) Urine Bacteria Mod /hpf (None Seen) Urine Glucose Normal mg/dL (Normal) Lactic Acid Level 1.9 mmol/L (0.4-2.0) Ammonia 43 umol/L (11-32) Lipase 147 U/L (12-53) Other Laboratory Tests 12/26/24 09:30 12/24/24 04:51 Brief Hx & Hospital Course: Brief history on admission: Ching Lopez is a 59-year-old female with past medical history of liver cirrhosis, bilateral knee surgery, status post TIPS 6 years ago, presented to the ER with chief complain of left-sided abdominal pain. She reports that the pain is in left lower quadrant, radiating to the back, 9 on 10, sharp and constant. Associated with nausea, vomiting. She has history of alcohol abuse and reported quitting alcohol use. She also reported that she has been coughing up dark black phlegm that started 3 weeks ago has been going on and off. She has been hospitalized in the past for liver cirrhosis and has been on lactulose on and off for her elevated ammonia levels. Hospital course: Her initial labs revealed elevated bilirubin, AST, ALT, ALP, lipase. She was managed with pain medications, antiemetics. Further workup revealed splenomegaly with multiple splenic hypodense lesions. MRI with contrast revealed hepatic cirrhosis, patent tips, splenic cysts/hemangiomas. She is stable for discharge, will follow closely with PCP. Discharge diagnosis: Hepatic cirrhosis status post TIPS TIPS dysfunction, ruled out Splenorenal shunt Gastric varices Splenomegaly Multiple splenic hypodense lesions up to 1.8 cm Paraumbilical hernia Thrombocytopenia Hyponatremia Hyperchloremia Hyperbilirubinemia Transaminitis Hyperlipasemia Hyperammonemia History of Liver cirrhosis History of Bilateral knee surgery History of tips procedure 6 years ago at [facility] History of alcohol abuse Umbilical hernia Pancreatitis ruled out Hypokalemia, corrected Discharge plan: Follow with PCP in 1 week Continue home medications Can take ondansetron, [place] as prescribed Operations or Procedures MRI Abdomen, Pre and Post Contrast Exam Date: 12/25/2024 04:07 PM Comparison: US ABDOMEN COMPLETE SONOGRAM on DOS: 12/23/24, CT CT AB PEL WO CON-NO ORAL OR IV on DOS: 12/23/24 History: Pancreatic lesion Technique: Multisequence multiplanar MRI images were obtained of the abdomen without and with intravenous contrast. Findings: Liver: Hepatic cirrhosis. Tips is patent and demonstrates flow. Inferior right hepatic lobe cyst measures 1.0 cm. Spleen: Splenomegaly, 13.8 cm craniocaudal. Multiple T2 hyperintense lesions in the spleen likely representing benign cysts or hemangiomas. Pancreas: The pancreas is normal in appearance without focal lesions. Gallbladder and ducts: Gallbladder is normal in appearance. Mild intrahepatic biliary duct dilation. The pancreatic duct is within normal limits. Adrenal glands: Unremarkable. Kidneys: Normal enhancement without suspicious lesions or hydronephrosis. Visualized bowel: Distended stomach. Vasculature: Upper abdominal varices are present including probable splenorenal shunt in gastric varices. Lymphadenopathy: No evidence for lymphadenopathy. Ascites: Absent. Musculoskeletal: Bone marrow signal is normal. IMPRESSION: Extremely limited examination secondary to poor signal to noise ratio from MRI scanner and patient motion artifact. Hepatic cirrhosis. Grossly patent TIPS. Upper abdominal varices including probable splenorenal shunt and gastric varices. ---- Indication: coughing up dark black phlegm Technique: CT axial images of the chest are obtained without contrast. Coronal and sagittal reformats were obtained. Radiation Dose Information: CTDI volume is 9.81 mGy. Dose-length product is 2.54 mGy*cm Comparison: None FINDINGS: The trachea is patent. No pneumothorax. There is no pulmonary airspace consolidation. No pleural effusion. The heart is normal in size. Cirrhotic morphology liver with tips stent again noted. Splenic hypodense lesions again noted. Mild thoracic degenerative disc disease. IMPRESSION: Limited evaluation without contrast. No pulmonary airspace consolidation. Cirrhotic morphology liver, presence of TIPS. Splenic hypodense lesions as described previously which can be further evaluate with MRI abdomen with and without contrast. ---- CHEST RADIOGRAPH Indication: Hemoptysis Technique: Single frontal view of the chest was obtained COMPARISON: None FINDINGS: Lines and Tubes: None Lungs: Clear Pleura: No effusion. No pneumothorax. Cardiomediastinal contours: Unremarkable Bones: Unremarkable IMPRESSION: No acute disease. ---- US ABDOMEN COMPLETE SONOGRAM HISTORY: Right upper quadrant pain, nausea, vomiting, diarrha COMPARISON: None TECHNIQUE: Transverse and longitudinal grayscale and color sonographic images were obtained of the abdomen. FINDINGS: Liver: - Size: 12.0 cm - Echogenicity: Heterogenous - Surface Contour: Nodular - Liver Lesion(s): TIPS with flow visualized. - Portal Vein: Patent and forward flowing. - Bile Ducts: Normal. The common bile duct is not visualized. Gallbladder: Normal. The sonographic jasmine sign is negative. Pancreas: Portions not obscured by bowel gas are normal. Spleen: - Size: 15.1 Cm 2.0 x 1.8 x 1.6 Cm thin walled cystic lesion. Kidneys: - Right kidney size: 11.8 cm. There is no hydronephrosis, renal calculi, or mass lesion. - Left kidney size: 11.9 cm. There is no hydronephrosis, renal calculi, or mass lesion. Aorta and Inferior Vena Cava: The visualized portions of the abdominal aorta and intrahepatic vena cava are normal. Other: None IMPRESSION: Cirrhotic liver with splenomegaly. TIPS visualized with flow within in seen. --- CT axial images of the abdomen and pelvis are obtained without contrast. Coronal and sagittal reformats were obtained. Radiation Dose Information: CTDI volume is 7 mGy. Dose-length product is 335 327.32 mGy*cm Comparison: None FINDINGS: There is limited interpretation of the abdomen and pelvis without administration of intravenous contrast. Lung bases demonstrate bibasilar atelectasis. Adrenal glands unremarkable in shape splenic hypodense lesions measuring up to 1.8 cm. Spleen enlarged. Pancreas unremarkable in shape. There is a tips. Cirrhotic morphology liver. 1.1 cm right hepatic lobe cyst. Kidneys demonstrate no hydronephrosis / nephrolithiasis. Stomach is partially distended. Small bowel loops are moderately distended. Moderate volume stool in the colon. Normal appendix. Abdominal aortic atherosclerotic disease. Bladder partially distended. Trace free pelvic fluid. No inguinal lymphadenopathy. [id number] bilateral sacroiliac degenerative joint disease. [id number] thoracolumbar degenerative disc disease. Paraumbilical hernia containing fluid measuring 1.2 x 1.1 cm. IMPRESSION: Cirrhotic morphology liver. Presence of tips. Splenomegaly. Multiple splenic hypodense lesions up to 1.8 cm. Recommend multiphasic MRI abdomen to characterize. Paraumbilical hernia containing fluid measuring 1.2 x 1.1 cm. Trace free pelvic fluid. Condition at Discharge: Stable Final Diagnosis/Problems List Hepatic cirrhosis status post TIPS TIPS dysfunction, ruled out Splenorenal shunt Gastric varices Splenomegaly Splenic cysts/ hemangiomas Paraumbilical hernia Thrombocytopenia Hyponatremia Hyperchloremia Hyperbilirubinemia Transaminitis Hyperlipasemia History of Liver cirrhosis History of Bilateral knee surgery History of tips procedure 6 years ago at [facility] History of alcohol abuse Umbilical hernia Pancreatitis ruled out Hypokalemia, corrected Discharge Disposition: Home Discharge Instruct/Medications Diet: Regular, See Comment Diet comment: Hepatic diet Activity: No Restrictions, As Tolerated Follow Up/Referral: Follow-up with PCP in 1 week Medications: As per EHR New Medications: Ondansetron Odt 4MG Tab (Zofran Po) 4 Mg Tb 4 MG PO Q8HPRN PRN, #30 TAB ODT TAB-DISSOLVE IN MOUTH, THEN SWALLOW Hydrocodone-Acetaminophen (Hydrocodone Bitartrate/AC 10-325 mg) 1 Tab Tab 1 TAB PO Q4HP PRN, #20 TAB Lactulose (Lactulose) 10 Gm/15 Ml Marcela 30 ML PO DAILY, #473 ML Scheduled Lactulose (Lactulose), 30 ML PO DAILY Scheduled PRN Hydrocodone-Acetaminophen (Hydrocodone Bitartrate/AC 10-325 mg), 1 TAB PO Q4HP PRN Ondansetron Odt 4MG Tab (Zofran Po), 4 MG PO Q8HPRN PRN Discharge Statement: "Patient was advised to return to the ER or call 911 if any headaches, dizziness, shortness of breath, chest pain, abdominal pain, bleeding, fevers, or worsening of medical condition. Patient was counseled about treatment plan, medications, possible side effects, patientverbalized understanding. All questions were answered to the best of my ability. This discharge took greater then 30 minutes in planning, reviewing documentation, counseling the patient, and discussing with other team members." ASSESSMENT ASSESSMENT Assessment Acute infectious gastroenteritis, bacteria/l viral, possible Ruled out TIPS dysfunction, history of liver cirrhosis with TIPS Date of Service: Dec 26, 2024 Billing Provider: TRISTAN LEE MD Common Visit Codes: 90206-NYV/OBS DISCH DAY >30min MARLENA CORONADO RESIDENT Dec 26, 2024 14:36 TRISTAN LEE MD Dec 27, 2024 11:17
[2024-12-26 16:07] VITALS: BP 104/53; PULSE 76; RESP 16; TEMP 36.7; O2SAT 98
[2024-12-26 17:03] VITALS: BP 111/55; PULSE 69; RESP 16; TEMP 97.6; O2SAT 96
== END 2024-12-26 19:45 | disposition home or self-care (01) ==
LOC: ER 09:48 → OVERFLOW 15:41 → CENTRAL 12-24 16:44
PROVIDERS: ADMIT Internal Medicine; ATTEND Internal Medicine
DX: K74.60 Unspecified cirrhosis of liver (principal); K72.90 Hepatic failure, unspecified without coma; D69.6 Thrombocytopenia, unspecified; E44.1 Mild protein-calorie malnutrition; D73.89 Other diseases of spleen; D73.4 Cyst of spleen; E87.1 Hypo-osmolality and hyponatremia; K42.9 Umbilical hernia without obstruction or gangrene; D18.09 Hemangioma of other sites; E87.8 Other disorders of electrolyte and fluid balance, not elsewhere classified; I86.4 Gastric varices; E80.6 Other disorders of bilirubin metabolism; R16.1 Splenomegaly, not elsewhere classified; Z79.899 Other long term (current) drug therapy; E87.6 Hypokalemia; Z68.30 Body mass index [BMI] 30.0-30.9, adult
CPT/HCPCS: 36415; 71045; 71250; 74176; 74183; 76700; 80048; 80053; 80307; 80320; 81001; 82140; 83605; 83690; 84484; 85025; 86606; 94618; 96374; 96375; G0378; J2405; J2470